=== PATIENT | male | born 1985 | race Caucasian/White ===

== ENCOUNTER → 2025-08-17 13:43 | Outpatient (CLI) | payer OTHER, SELFPAY ==
--- NOTE | 2025-08-17 13:47 | DI.RAD.S_ITS ---
PROCEDURE: FL ARTHROGRAM SHOULDER RT INDICATIONS: right shoulder pain COMPARISON: [facility], MR, MR SHOULDER RT W CON, 08/17/2025, 14:16. TECHNIQUE: The indications, alternatives, benefits, risks, and complications of the procedure were explained to the patient. Written informed consent was obtained and placed in the chart. The shoulder was examined fluoroscopically and a site for needle placement chosen for entry into the glenohumeral joint from an anterior approach. The skin was prepped and draped in a sterile fashion, and 1% lidocaine infiltrated from skin down to joint capsule. A spinal needle was inserted into the glenohumeral joint, and a small amount of iodinated contrast media injected to confirm intra-articular placement of the needle tip. This was followed by approximately 12 mL dilute solution of a gadolinium containing MR contrast agent. The needle was removed and a dressing was applied. The patient was given postprocedural instructions and sent to the MR suite for MR imaging. FINDINGS: A single fluoroscopic spot image demonstrates intra-articular location of injected iodinated contrast. IMPRESSION: Successful fluoroscopically guided administration of dilute Gadolinium solution into the shoulder joint for MR arthrogram. Dictated by: Abdulkadir Fernandez M.D. on 08/17/2025 at 15:04 Approved by: Abdulkadir Fernandez M.D. on 08/17/2025 at 15:04
--- NOTE | 2025-08-17 13:47 | DI.MRI.S_ITS ---
PROCEDURE: MR SHOULDER RT W CON INDICATIONS: right shoulder pain TECHNIQUE: After the administration of 12 mL of dilute intra-articular Gadolinium contrast, oblique coronal T1 and T2 spin echo with fat saturation, oblique sagittal T1 spin echo with and without fat saturation, oblique sagittal T2 fast spin echo with fat saturation, axial T1 spin echo with fat saturation through the shoulder. COMPARISON: None. FINDINGS: Quality: Adequate. Tendons: Rotator cuff tendons: Less than 25 percent thickness bursal sided insertional tear supraspinatus tendon. Less than 25 percent thickness interstitial non insertional tear of infraspinatus tendon. Teres minor tendon is intact. Subscapularis tendon is intact. Long head of biceps tendon: Intact. No dislocation. Muscles: No disproportionate fatty degeneration of the rotator cuff musculature. Acromioclavicular joint: Mild degenerative change.. Glenohumeral joint: Labrum: Superior labral anterior posterior tear.. Cartilage: No focal defect. Fluid: Adequate distention of joint by intra-articular injection of gadolinium contrast containing fluid. Alignment: No dislocation. Bursa: Subacromial/subdeltoid bursa: Trace fluid. Subcoracoid bursa: Nondistended. Bones: No fracture. IMPRESSION: Low-grade partial-thickness bursal sided supraspinatus tendon tear and mild subacromial/subdeltoid bursitis. Low-grade partial-thickness interstitial infraspinatus tendon tear. Mild acromioclavicular arthropathy. Superior labral anterior posterior tear. Dictated by: Abdulkadir Fernandez M.D. on 08/19/2025 at 10:59 Approved by: Abdulkadir Fernandez M.D. on 08/19/2025 at 11:05
[2025-08-17] MEDS: LIDOCAINE 1% 20 ML INJ (14:52)
[2025-08-17] MEDS: SODIUM CHLORIDE 0.9 % 20 ML VIAL IV (14:53)
== END ==
PROVIDERS: PCP Nurse Practitioner Family; Referring Provider Nurse Practitioner Family; Visit Provider Nurse Practitioner Family
DX: M75.111 Incomplete rotator cuff tear or rupture of right shoulder, not specified as traumatic (principal); M12.811 Other specific arthropathies, not elsewhere classified, right shoulder; S43.431A Superior glenoid labrum lesion of right shoulder, initial encounter; M25.511 Pain in right shoulder; M25.611 Stiffness of right shoulder, not elsewhere classified; G89.29 Other chronic pain
CPT/HCPCS: 23350; 73040; 73222; A9579; Q9967